=== PATIENT | female | born 1960 | race Caucasian/White ===

== ENCOUNTER 2018-04-07 11:27 | Inpatient (IN) | payer MEDICAID ==
[~2018-04-07] VITALS: Ht 172.7 cm; Wt 55.3 kg
--- NOTE | 2018-04-07 11:39 | NUR ---
RECECIVED A 57 Y/O FEMALE PT FROM HOME C/O ABD PAIN/ BACK PAIN. AWAITING TO BE SEEN BY
[2018-04-07] MEDS ORDERED: NITR100C11 PO (11:43)
[2018-04-07] MEDS ORDERED: ONDANSETRON 4 MG/2 ML VIAL IV ONE (12:00)
[2018-04-07] MEDS ORDERED: IV NORMAL SALINE 500 ML BAG IV ONE (12:00)
[2018-04-07] MEDS ORDERED: MORPHINE SULFATE 2 MG/1 ML DISP.SYRIN IV ONE (12:00)
[2018-04-07] MEDS ORDERED: ONDANSETRON 4 MG/2 ML VIAL ONE (12:09)
[2018-04-07] MEDS ORDERED: MORPHINE SULFATE 2 MG/1 ML DISP.SYRIN ONE (12:10)
[2018-04-07 12:18] LABS: BASOPHILS # (AUTO) 0.1 K/uL (0.0-8.0); BASOPHILS % (AUTO) 0.9 % (0.0-2.0); EOSINOPHILS # (AUTO) 0.2 K/uL (0.0-0.7); EOSINOPHILS % (AUTO) 2.8 % (0.0-7.0); HEMOGLOBIN 13.4 g/dL (10.9-14.3); LYMPHOCYTES # (AUTO) 1.8 K/uL (20.0-40.0); LYMPHOCYTES % (AUTO) 23.4 % (20.5-51.5); MEAN CORPUSCULAR HEMOGLOBIN 30.3 uug (24.7-32.8); MEAN CORPUSCULAR HGB CONC 34 g/dL (32.3-35.6); MEAN CORPUSCULAR VOLUME 88.1 fL (75.5-95.3); MONOCYTES # (AUTO) 0.6 K/uL (2.0-10.0); MONOCYTES % (AUTO) 7.6 % (0.0-11.0); NEUTROPHILS % (AUTO) 65.3 % (38.5-71.5); PLATELET COUNT (AUTO) 342 K/uL (179-408); RED BLOOD CELL COUNT(AUTO) 4.42 MIL/uL (3.63-4.92); WHITE BLOOD COUNT (AUTO) 7.7 K/uL (3.8-11.8)
[2018-04-07 12:22] LABS: CREATININE 0.9 mg/dL (0.6-1.3); POTASSIUM 3.1 mmol/L (3.5-5.1)
[2018-04-07 12:28] LABS: BILIRUBIN,DIRECT 0.1 mg/dL (0.0-0.2); BILIRUBIN,TOTAL 0.4 mg/dL (0.2-1.0); TOTAL PROTEIN, SERUM 7.3 g/dL (6.4-8.2)
[2018-04-07] MEDS ORDERED: SWABABLE VALVE TRANSFER SET EA MC ONE (12:37)
[2018-04-07] MEDS ORDERED: IV NORMAL SALINE 250 ML IV ONE (12:37)
[2018-04-07] MEDS ORDERED: IOHEXOL 300MG/ML 100 ML INFUS..BTL ONE (12:37)
[2018-04-07] MEDS ORDERED: NORMAL SALINE FLUSH 10 ML DISP.SYRIN ONE (12:37)
--- NOTE | 2018-04-07 12:42 | NUR ---
PATIENT GAVE URINE SAMPLE, AND CONSENT SIGNED FOR CT WITH CONTRAST, PT DENIES .
[2018-04-07 12:50] LABS: *BILIRUBIN,URIN NEGATIVE (NEGATIVE); *BLOOD, URINE NEGATIVE (NEGATIVE); *CLARITY,URINE CLEAR (CLEAR); *COLOR,URINE LIGHT YELLOW (YELLOW); *KETONES,URINE NEGATIVE (NEGATIVE); *PROTEIN,URINE NEGATIVE (NEGATIVE); *UROBILINOGEN,URINE 0.2 E.U./dl (NORMAL); LEUKOCYTE ESTERASE ,URINE NEGATIVE (NEGATIVE); NITRITE, URINE NEGATIVE (NEGATIVE); UGLUCOSE NEGATIVE (NEGATIVE)
[2018-04-07 12:54] LABS: BACTERIA,URINE NONE SEEN /HPF (NONE SEEN); RBC,URINE 0-3 /HPF (0-3); SQUAMOUS EPITHELIAL CELL,UR FEW /HPF (NONE SEEN); WBC,URINE 0-3 /HPF (0-3)
--- NOTE | 2018-04-07 12:54 | NUR ---
PT SENT TO RADIOLOGY UNIT FOR CT SCAN AND CHEST XRAY, AND BACK TO ER.
--- NOTE | 2018-04-07 14:20 | NUR ---
Call placed to [facility], Dr. Moreno has been paged.
--- NOTE | 2018-04-07 15:25 | NUR ---
ADMITTED FROM HOME A 57 YO FEMALE WITH ADM DX OF ABDOMINAL PAIN. AWAKE ALERT AND ORIENTED X3 NO SS OF RESPIRATORY DISTRESS, ABDOMINAL PAIN SUBSIDED FROM PAIN MEDS GIVEN IN ER. ROUTINE ADM ASSESSMENT DONE DR PETERS NOTIFIED AWAITING CALL BACK
[2018-04-07 15:32] VITALS: BP 133/76
--- NOTE | 2018-04-07 15:39 | NUR ---
PATIENT ADMITTED TO MED-SURGICAL UNIT , REPORT GIVEN TO AURY LARRY.
[2018-04-07] MEDS ORDERED: MAGNESIUM HYDROXIDE 30 ML LIQUID UDC PO PRN (17:45)
[2018-04-07] MEDS ORDERED: hydrALAZINE HCL 25 MG TABLET PO PRN (17:45)
[2018-04-07] MEDS ORDERED: ALBUTEROL SULFATE 2.5 MG/3 ML NEBU NEB PRN (17:45)
[2018-04-07] MEDS ORDERED: ONDANSETRON 4 MG/2 ML VIAL IV PRN (17:45)
[2018-04-07] MEDS ORDERED: ACETAMINOPHEN 325 MG TABLET PO PRN (17:45)
[2018-04-07] MEDS: POTASSIUM CHLORIDE 20 MEQ in IV 1/2NS 1000 ML 1,000 ML IV PRN (18:57)
[2018-04-07] MEDS: MORPHINE SULFATE 2 MG/1 ML DISP.SYRIN IV PRN (19:00)
[2018-04-07 20:00] VITALS: BP 122/77
--- NOTE | 2018-04-07 20:30 | NUR ---
DR ARAGON IN ROOM TALKING TO PATIENT AND FAMILY AT THIS TIME.
[2018-04-07] MEDS: DOCUSATE SODIUM 100 MG CAPSULE PO SCH (21:28)
[2018-04-07] MEDS ORDERED: LORAZEPAM 2 MG/1 ML VIAL IV ONE (21:30)
[2018-04-08] MEDS: HYDROCODONE/APAP 5-325MG TABLET PO PRN (04:04)
[2018-04-08 05:13] VITALS: BP 149/69
[2018-04-08 05:53] LABS: BASOPHILS # (AUTO) 0.1 K/uL (0.0-8.0); BASOPHILS % (AUTO) 0.9 % (0.0-2.0); EOSINOPHILS # (AUTO) 0.2 K/uL (0.0-0.7); EOSINOPHILS % (AUTO) 3.1 % (0.0-7.0); HEMOGLOBIN 12.1 g/dL (10.9-14.3); LYMPHOCYTES # (AUTO) 1.6 K/uL (20.0-40.0); LYMPHOCYTES % (AUTO) 22.8 % (20.5-51.5); MEAN CORPUSCULAR HEMOGLOBIN 30.2 uug (24.7-32.8); MEAN CORPUSCULAR HGB CONC 34 g/dL (32.3-35.6); MEAN CORPUSCULAR VOLUME 87.7 fL (75.5-95.3); MONOCYTES # (AUTO) 0.8 K/uL (2.0-10.0); MONOCYTES % (AUTO) 10.5 % (0.0-11.0); NEUTROPHILS # (AUTO) 4.5 K/uL (1.8-8.9); NEUTROPHILS % (AUTO) 62.7 % (38.5-71.5); PLATELET COUNT (AUTO) 311 K/uL (179-408); RED BLOOD CELL COUNT(AUTO) 3.99 MIL/uL (3.63-4.92); WHITE BLOOD COUNT (AUTO) 7.2 K/uL (3.8-11.8)
[2018-04-08] MEDS: PANTOPRAZOLE SODIUM 40 MG TABLET.DR PO SCH (06:10)
[2018-04-08 06:15] LABS: THYROID STIMULATING HORMONE 2.322 mIU/mL (0.358-3.740)
[2018-04-08 06:19] LABS: BILIRUBIN,TOTAL 0.6 mg/dL (0.2-1.0); CREATININE 0.9 mg/dL (0.6-1.3); MAGNESIUM 1.8 mg/dL (1.8-2.4); PHOSPHOROUS 4.6 mg/dL (2.5-4.9); TOTAL PROTEIN, SERUM 6.5 g/dL (6.4-8.2)
--- NOTE | 2018-04-08 06:25 | NUR ---
Pt slept intermittently through the night. Daughter at bedside. C/O pain in the left side as pt pointed out in a generalized area. Stated it was more of a discomfort and that was making her unable to sleep. Pain 5/10 and Laurel was administered and effective. Continues to be anxious at times as she is awaiting her test results. Provided comfort measures for patient such as adjusting the bed and providing warm blankets. Pt wants to rest at this time and wait for breakfast. Refused her protonix this morning.
--- NOTE | 2018-04-08 08:00 | NUR ---
AWAKE ALERT AND ABLE TO VERBALIZE NEEDS, NO SS OF DISTRESS. STILL C/O ON AND OFF ABDOMINAL PAIN RADIATING TO LEFT AND RIGHT SIDE OF HIPS CONTINUE WITH PAIN MANAGEMENT
[2018-04-08] MEDS ORDERED: CITALOPRAM 10 MG TABLET PO SCH (09:00)
--- NOTE | 2018-04-08 11:00 | NUR ---
DR MEANUEL NOTED LABS WITH ORDERS. CONTINUE WITH CURRENT TX PLAN
[2018-04-08] MEDS ORDERED: POTASSIUM CHLORIDE 20 MEQ TAB.PRT.SR PO ONE (11:30)
[2018-04-08 11:42] VITALS: BP 159/81
[2018-04-08] MEDS: DEXAMETHASONE SOD PHOSPHATE 4 MG INJ IV SCH ×2 (12:51→17:14)
--- NOTE | 2018-04-08 13:05 | NUR ---
SEEN BY DR TOM FOR CONSULT WITH ORDERS SEE NOTES
[2018-04-08 15:20] VITALS: BP 147/71
[2018-04-08] MEDS: POTASSIUM CHLORIDE 20 MEQ in IV 1/2NS 1000 ML 1,000 ML IV PRN (15:32)
[2018-04-08] MEDS: LORAZEPAM 2 MG/1 ML VIAL IV PRN (17:15)
--- NOTE | 2018-04-08 17:46 | NUR ---
PATIENT NOTED WITH SOME PERIODS OF ANXIETY, NO SS OF DISTRESS, MEDICATED WITH PRN ATIVAN WITH TEMPORARY RELIEF.CONTINUE WITH PAIN MANAGEMENT
[2018-04-08 19:00] VITALS: BP 132/78
--- NOTE | 2018-04-08 19:50 | NUR ---
RECEIVED PATIENT AWAKE IN BED. A/O X4. DENIES PAIN AT THIS TIME. NO RESP. DISTRESS NOTED. VSS. IVF INFUSING WELL TO LEFT FA #20 GAUGE. CALL LIGHT IN REACH. ALL NEEDS ATTENDED. WILL CONTINUE TO MONITOR AND ASSESS.
[2018-04-08] MEDS: DOCUSATE SODIUM 100 MG CAPSULE PO SCH (20:37)
[2018-04-08] MEDS: MORPHINE SULFATE 2 MG/1 ML DISP.SYRIN IV PRN (23:05)
[2018-04-09] MEDS: DEXAMETHASONE SOD PHOSPHATE 4 MG INJ IV SCH ×5 (00:01→23:06)
[2018-04-09 04:00] VITALS: BP 131/71
[2018-04-09] MEDS: POTASSIUM CHLORIDE 20 MEQ in IV 1/2NS 1000 ML 1,000 ML IV PRN ×2 (05:44→20:37)
--- NOTE | 2018-04-09 06:09 | NUR ---
PATIENT ASLEEP IN BED. EASILY AROUSABLE. SLEPT WELL THROUGHOUT THE NIGHT. VSS. DENIES PAIN OR DISCOMFORT. NO RESP. DISTRESS NOTED. IVF INFUSING WELL TO LEFT FA #20 GAUGE. CALL LIGHT IN REACH. ALL NEEDS ATTENDED. WILL CONTINUE TO MONITOR AND ASSESS.
[2018-04-09] MEDS: PANTOPRAZOLE SODIUM 40 MG TABLET.DR PO SCH (06:18)
[2018-04-09 07:02] LABS: CREATININE 0.8 mg/dL (0.6-1.3); MAGNESIUM 1.9 mg/dL (1.8-2.4); POTASSIUM 4.1 mmol/L (3.5-5.1)
--- NOTE | 2018-04-09 07:44 | NUR ---
PATIENT RESTING COMFORTABLY IN BED AT THIS TIME. GOING FOR MRI TODAY AT [facility]. 24-HOUR URINE COLLECTION ENDING AT 1845 TODAY, WILL SEND TO LAB IMMEDIATELY AFTER. STABLE CONDITION, NO S/S OF DISTRESS. AMBULATORY, A/OX4. PAIN MANAGEMENT WILL BE PROVIDED.
[2018-04-09] MEDS: CITALOPRAM 10 MG TABLET PO SCH (08:42)
[2018-04-09 11:24] VITALS: BP 160/78
--- NOTE | 2018-04-09 13:20 | NUR ---
patient returned from MRI at this time. stable condition, no s/s of distress. vital signs stable. complains of pain, will be managed.
[2018-04-09] MEDS: MORPHINE SULFATE 2 MG/1 ML DISP.SYRIN IV PRN ×2 (13:23→17:44)
[2018-04-09 15:16] VITALS: BP 138/65
[2018-04-09 19:00] VITALS: BP 154/73
--- NOTE | 2018-04-09 19:30 | NUR ---
Patient is alert, awake, lying down comfortably at start of shift. Family currently at the bedside. No acute distress noted. Vital signs within range. Patient denying pain at the moment but feeling anxious. Will administer PRN order & reassess. IV fluids running into left forearm at 80cc/hr with no signs of infiltration or swelling at IV site. Call light within reach of patient. Will continue to monitor through shift.
[2018-04-09] MEDS: LORAZEPAM 2 MG/1 ML VIAL IV PRN (20:02)
[2018-04-09] MEDS: DOCUSATE SODIUM 100 MG CAPSULE PO SCH (20:12)
[2018-04-10] MEDS: MORPHINE SULFATE 2 MG/1 ML DISP.SYRIN IV PRN ×4 (03:17→17:04)
[2018-04-10 04:00] VITALS: BP 146/81
[2018-04-10] MEDS: PANTOPRAZOLE SODIUM 40 MG TABLET.DR PO SCH (06:09)
[2018-04-10] MEDS: DEXAMETHASONE SOD PHOSPHATE 4 MG INJ IV SCH ×4 (06:09→23:41)
--- NOTE | 2018-04-10 06:31 | NUR ---
Patient stable during shift with no acute distress noted. Vital signs remained within range. Complaints of back pain during the night. Pain management provided. Patient stated that pain occurs only with movement. All needs met during shift. Safety & comfort measures provided. Call light within reach of patient. Will endorse to oncoming shift.
[2018-04-10] MEDS: CITALOPRAM 10 MG TABLET PO SCH (08:19)
[2018-04-10] MEDS: POTASSIUM CHLORIDE 20 MEQ in IV 1/2NS 1000 ML 1,000 ML IV PRN (09:38)
[2018-04-10 10:08] LABS: A/G RATIO 1.2 (0.7-1.7); ALBUMIN 3.7 g/dL (2.9-4.4); ALPHA-1-GLOBULIN 0.3 g/dL (0.0-0.4); ALPHA-2-GLOBULIN 0.8 g/dL (0.4-1.0); GLOBULIN, TOTAL 3.1 g/dL (2.2-3.9); M-SPIKE Not Observed g/dL (Not Observed)
--- NOTE | 2018-04-10 10:47 | NUR ---
PT WENT TO THE PATIO FOR SMOKING ,TRY TO EXPLAIN TO THE PT SIDE EFFECT OF SMOKING PT SAID SHE DON,T CARE SHE NEEDS TO SMOKE CHARGE NURSE AND MD MADE AWARE
[2018-04-10 11:43] VITALS: BP 150/80
[2018-04-10 16:09] VITALS: BP 160/79
--- NOTE | 2018-04-10 17:22 | NUR ---
pt went for mri via ambulances in stable condition
[2018-04-10 19:35] VITALS: BP 155/82
[2018-04-10] MEDS: DOCUSATE SODIUM 100 MG CAPSULE PO SCH (20:41)
[2018-04-10] MEDS ORDERED: TEMAZEPAM 7.5 MG CAPSULE PO PRN (20:45)
[2018-04-10] MEDS: LORAZEPAM 2 MG/1 ML VIAL IV PRN (20:56)
--- NOTE | 2018-04-11 01:00 | NUR ---
Nursing Note: Pt verbalized that she experiences pain when attempting to go to the restroom due to her back. Pt awake alert oriented. Currently not in any pain. Patient requested medication for sleep. Medication appears to be effective. Bed in low and locked position. Call light in reach. Continue plan of care
[2018-04-11 03:49] VITALS: BP 115/82
--- NOTE | 2018-04-11 03:56 | NUR ---
Nursing Note: Pt resting in bed. Respirations even and unlabored. Patient seen by Dr. Mueller. New order for Restoril. Pt in room with daughter and son in law. Pt also seen by doctor to discuss plan of care. Pt verbalized understanding of plan. No complaints of pain at this time. Bed in low and locked position. Call light in reach. Will continue plan of care. Addendum: 04/11/18 at 0404 by AFSHIN CARRANZA RN time of occurance 04/10/18 2100
--- NOTE | 2018-04-11 04:05 | NUR ---
Nursing Note: Pt IV became dislodged. New IV site started. No complaints of pain or discomfort at this time. All needs anticipated and met. Bed in low and locked position. Continue plan of care.
[2018-04-11] MEDS: HYDROCODONE/APAP 5-325MG TABLET PO PRN (06:16)
[2018-04-11] MEDS: DEXAMETHASONE SOD PHOSPHATE 4 MG INJ IV SCH ×3 (06:16→17:39)
[2018-04-11] MEDS: PANTOPRAZOLE SODIUM 40 MG TABLET.DR PO SCH (06:21)
[2018-04-11] MEDS: POTASSIUM CHLORIDE 20 MEQ in IV 1/2NS 1000 ML 1,000 ML IV PRN ×2 (06:31→17:10)
[2018-04-11 06:46] LABS: BASOPHILS % (AUTO) 0.1 % (0.0-2.0); HEMATOCRIT 36.9 % (31.2-41.9); HEMOGLOBIN 12.5 g/dL (10.9-14.3); LYMPHOCYTES # (AUTO) 1.4 K/uL (20.0-40.0); LYMPHOCYTES % (AUTO) 12.7 % (20.5-51.5); MEAN CORPUSCULAR HEMOGLOBIN 29.9 uug (24.7-32.8); MEAN CORPUSCULAR HGB CONC 34 g/dL (32.3-35.6); MEAN CORPUSCULAR VOLUME 88.4 fL (75.5-95.3); MONOCYTES # (AUTO) 0.6 K/uL (2.0-10.0); MONOCYTES % (AUTO) 5.5 % (0.0-11.0); NEUTROPHILS % (AUTO) 81.7 % (38.5-71.5); PLATELET COUNT (AUTO) 353 K/uL (179-408); RED BLOOD CELL COUNT(AUTO) 4.17 MIL/uL (3.63-4.92)
[2018-04-11 06:56] LABS: CREATININE 0.7 mg/dL (0.6-1.3)
[2018-04-11 07:06] LABS: *PEU ALBUMIN, UR 43.3 % (.); *PEU ALPHA-2-GLOBULIN, UR 16.2 % (.); *PEU GAMMA GLOBULIN, UR 14.4 % (.); *PEUALPHA-1-GLOBULIN, UR 4.8 % (.); *PEUBETA GLOBULIN, UR 21.3 % (.)
[2018-04-11] MEDS: CITALOPRAM 10 MG TABLET PO SCH (08:03)
[2018-04-11] MEDS: MORPHINE SULFATE 2 MG/1 ML DISP.SYRIN IV PRN ×3 (10:53→20:31)
[2018-04-11 11:24] VITALS: BP 147/75
[2018-04-11] MEDS ORDERED: GADODIAMIDE 2.5 MMOL/5 ML VIAL IV ONE (12:03)
[2018-04-11 15:14] VITALS: BP 142/73
[2018-04-11 19:37] VITALS: BP 162/76
[2018-04-11] MEDS: MORPHINE SULFATE SR 15 MG TABLET.SA PO SCH (20:05)
[2018-04-11] MEDS: DOCUSATE SODIUM 100 MG CAPSULE PO SCH (20:05)
--- NOTE | 2018-04-11 21:00 | NUR ---
Nursing Note: Pt resting in bed with daughter at bedside. Appears not to be in distress at this time. Respirations even and unlabored on room air. Pt requesting medication for pain stating pain is intolerable. MD made aware. Oncologist spoke to patient and ordered pain medication. Bed in low and locked position. Call light in reach. Will continue to monitor.
[2018-04-11] MEDS ORDERED: MORPHINE SULFATE 2 MG/1 ML DISP.SYRIN IV ONE (21:30)
[2018-04-11] MEDS ORDERED: MORPHINE SULFATE 2 MG/1 ML DISP.SYRIN IV PRN (21:45)
[2018-04-12] MEDS: DEXAMETHASONE SOD PHOSPHATE 4 MG INJ IV SCH ×5 (00:23→23:08)
--- NOTE | 2018-04-12 01:00 | NUR ---
Nursing Note: Pt resting in bed. No complaints of pain at this time. Medication for pain appears to be effective. Bed in low and locked position. Frequent visual checks done for safety. Call light in reach at all times. Will continue to monitor.
[2018-04-12 03:42] VITALS: BP 128/71
[2018-04-12] MEDS: POTASSIUM CHLORIDE 20 MEQ in IV 1/2NS 1000 ML 1,000 ML IV PRN ×2 (06:03→23:07)
[2018-04-12] MEDS: PANTOPRAZOLE SODIUM 40 MG TABLET.DR PO SCH (06:03)
[2018-04-12 06:06] LABS: *ALPHA-1-GLOBULIN, 24 4.9 % (.); *ALPHA-2-GLOBULIN, U24 12.2 % (.); *BETA GLOBULIN,24 28.7 % (.); *PEUGAMMA GLOBULIN, 24 16.1 % (.); *PROTEIN, TOTAL, UR 24 HR 14.3 mg/dL (Not Estab.)
[2018-04-12 06:16] LABS: BASOPHILS % (AUTO) 0.1 % (0.0-2.0); HEMATOCRIT 36.5 % (31.2-41.9); HEMOGLOBIN 12.4 g/dL (10.9-14.3); LYMPHOCYTES # (AUTO) 1.3 K/uL (20.0-40.0); LYMPHOCYTES % (AUTO) 13.6 % (20.5-51.5); MEAN CORPUSCULAR HEMOGLOBIN 29.8 uug (24.7-32.8); MEAN CORPUSCULAR HGB CONC 34 g/dL (32.3-35.6); MEAN CORPUSCULAR VOLUME 87.6 fL (75.5-95.3); MONOCYTES # (AUTO) 0.9 K/uL (2.0-10.0); MONOCYTES % (AUTO) 9.3 % (0.0-11.0); NEUTROPHILS # (AUTO) 7.6 K/uL (1.8-8.9); PLATELET COUNT (AUTO) 374 K/uL (179-408); RED BLOOD CELL COUNT(AUTO) 4.17 MIL/uL (3.63-4.92); WHITE BLOOD COUNT (AUTO) 9.8 K/uL (3.8-11.8)
[2018-04-12 06:32] LABS: CREATININE 0.8 mg/dL (0.6-1.3)
[2018-04-12] MEDS: CITALOPRAM 10 MG TABLET PO SCH (08:07)
[2018-04-12] MEDS: MORPHINE SULFATE SR 15 MG TABLET.SA PO SCH ×2 (08:07→20:54)
[2018-04-12 11:27] VITALS: BP 135/68
[2018-04-12] MEDS: MORPHINE SULFATE 4 MG/1 ML DISP.SYRIN IV PRN ×2 (12:02→16:03)
[2018-04-12 15:02] VITALS: BP 130/70
[2018-04-12 19:30] VITALS: BP 130/71
--- NOTE | 2018-04-12 20:00 | NUR ---
PATIENT IS AWAKE IN AAOX4, DENIES PAIN OR ANY DISTRESS ON ASSESSMENT. SAFETY MEASURES IN PLACE, WILL CONTINUE TO MONITOR PATIENT
[2018-04-12] MEDS: DOCUSATE SODIUM 100 MG CAPSULE PO SCH (20:53)
[2018-04-13 03:42] VITALS: BP 139/72
[2018-04-13] MEDS: MORPHINE SULFATE 4 MG/1 ML DISP.SYRIN IV PRN ×2 (04:56→11:16)
[2018-04-13] MEDS: DEXAMETHASONE SOD PHOSPHATE 4 MG INJ IV SCH ×3 (06:03→18:00)
[2018-04-13] MEDS: PANTOPRAZOLE SODIUM 40 MG TABLET.DR PO SCH (06:03)
--- NOTE | 2018-04-13 06:21 | NUR ---
PATIENT SLEPT WELL THROUGH THE SHIFT. PAIN MEDS GIVEN REQUESTED WITH EFFECT. NO S/S OF PAIN OR ACUTE DISTRESS AT THIS TIME. NO FURTHER CHANGES IN STATUS
--- NOTE | 2018-04-13 07:05 | NUR ---
Received patient in bed, awake, alert and oriented x4, in no acute distress. Denies chest pain or SOB at this time. IV site on LFA intact, IV fluids running at 80cc/hr, tolerating well. Will continue to monitor
[2018-04-13] MEDS ORDERED: LIDOCAINE HCL 1% 20 ML VIAL ONE (07:21)
--- NOTE | 2018-04-13 08:30 | NUR ---
Patient went off the unit to radiology for biopsy
[2018-04-13] MEDS ORDERED: MIDAZOLAM HCL 2 MG/2 ML VIAL IV PRN (08:45)
[2018-04-13] MEDS ORDERED: FENTANYL CITRATE 100 MCG/2 ML AMPUL IV PRN (08:45)
[2018-04-13] MEDS ORDERED: NALOXONE 2 MG/2 ML SYRINGE IV PRN (08:45)
[2018-04-13 11:11] VITALS: BP 163/77
--- NOTE | 2018-04-13 11:15 | NUR ---
Patient came back to the unit from radiology s/p biopsy of thyroid and left eighth rib. Patient is awake, alert and oriented x4, c/o severe pain. Medicated accordingly. Will continue to monitor
[2018-04-13] MEDS: MORPHINE SULFATE SR 15 MG TABLET.SA PO SCH ×2 (12:08→21:08)
[2018-04-13] MEDS: CITALOPRAM 10 MG TABLET PO SCH (12:08)
[2018-04-13 15:35] VITALS: BP 146/78
[2018-04-13] MEDS: POTASSIUM CHLORIDE 20 MEQ in IV 1/2NS 1000 ML 1,000 ML IV PRN (16:56)
--- NOTE | 2018-04-13 17:14 | NUR ---
End of shift note: Patient is alert and oriented x4, in no acute distress. Medicated for pain as needed and was effective. denies chest pain or SOB. No acute change of condition noted. All needs attended and met. Will continue to monitor
--- NOTE | 2018-04-13 19:00 | NUR ---
RECEIVED PATIENT UP IN THE WHEELCHAIR, ALERT ORIENTED ABLE TO MAKE NEEDS KNOWN, CONT ON PAIN MANAGEMENT, NO S/SOF DISTRESS, CONT TO MONITOR..
--- NOTE | 2018-04-13 20:19 | NUR ---
PATIENT REQUEST FROM NURSE PRACTITIONER Kelli BEE TO SMOKE DOWN STAIRS ACCOMPANIED BY FAMILY, COMPUTER INFORMATION SYSTEMS INSTRUCTOR OKEYED THE REQUEST.
[2018-04-13] MEDS: DOCUSATE SODIUM 100 MG CAPSULE PO SCH (21:04)
--- NOTE | 2018-04-13 23:05 | NUR ---
PATIENT DISCHARGE HOME ACCOMPANIED BY SON AND DAUGHTER, IN FAIR CONDITION, TOOK ALL BELONGINGS, COPY OF CD TEST GIVEN TO SON, DISCHARGE PAPERS GIVEN TO SON.
== END 2018-04-13 23:24 | disposition home or self-care (01) | DRG 691 ==
LOC: ER 11:27 → MED 15:17
PROVIDERS: ADMIT Internal Medicine; ATTEND Internal Medicine
PROC: 0G9G3ZX Drainage of Left Thyroid Gland Lobe, Percutaneous Approach, Diagnostic (ICD-10-PCS; principal; 2018-04-13)
PROC: 0PB13ZX Excision of 1 to 2 Ribs, Percutaneous Approach, Diagnostic (ICD-10-PCS; principal; 2018-04-13)
DX: C90.00 Multiple myeloma not having achieved remission (principal); C78.6 Secondary malignant neoplasm of retroperitoneum and peritoneum; C79.51 Secondary malignant neoplasm of bone; E44.0 Moderate protein-calorie malnutrition; M84.58XA Pathological fracture in neoplastic disease, other specified site, initial encounter for fracture; N28.1 Cyst of kidney, acquired; C94.6 Myelodysplastic disease, not elsewhere classified; Z87.442 Personal history of urinary calculi; F17.210 Nicotine dependence, cigarettes, uncomplicated; Z68.1 Body mass index [BMI] 19.9 or less, adult; G89.3 Neoplasm related pain (acute) (chronic); N83.202 Unspecified ovarian cyst, left side; E04.2 Nontoxic multinodular goiter; F32.9 Major depressive disorder, single episode, unspecified; I10 Essential (primary) hypertension; F41.9 Anxiety disorder, unspecified; E78.5 Hyperlipidemia, unspecified; E87.6 Hypokalemia; J44.9 Chronic obstructive pulmonary disease, unspecified
CPT/HCPCS: 36415; 70030-TC; 71045; 71250; 72148; 76641-TC; 76856; 76942; 77074; 82378; 82784; 83550; 83605; 83690; 83735; 84100; 84155; 84165; 84166; 84443; 85025; 85610; 86300; 86334; 87040; 88342; 93005; A4663; J1100; J2060; J2250; J2270; J2310; J2405; J3010; J3480; J3490; J7030; J7050; Q9967